=== PATIENT | male | born 1990 | race African-American/Black ===

== ENCOUNTER 2017-07-11 19:56 | Emergency (ER) | payer OTHER ==
[~2017-07-11] VITALS: Ht 162.6 cm; Wt 59.0 kg
[2017-07-11 20:15] VITALS: BP 113/69
[2017-07-11] MEDS ORDERED: Cephalexin 250 MG/5 ML SUSP 100ml ORAL ONE (20:30)
[2017-07-11 20:41] LABS: APPEARANCE,URINE CLOUDY; BILIRUBIN, URINE NEGATIVE (NEGATIVE); COLOR,URINE PALE YELLOW; GLUCOSE, URINE (UA) NEGATIVE (NEGATIVE); KETONES,URINE NEGATIVE (NEGATIVE); LEUKOCYTE ESTERASE ,URINE 3+ (NEGATIVE); NITRITE,URINE NEGATIVE (NEGATIVE); PH,URINE 9 (4.5-8.0); PROTEIN,URINE 3+ (NEGATIVE); UROBILINOGEN,URINE 1 MG/DL (0.0-1.0)
[2017-07-11] MEDS ORDERED: Cephalexin 500mg cap ONE (20:42)
[2017-07-11] MEDS ORDERED: KEFLEX500 MG ORAL (21:05)
[2017-07-11] MEDS ORDERED: PHENAZOPYRIDIN200 MG ORAL (21:05)
[2017-07-11 23:05] VITALS: BP 113/69
--- NOTE | 2017-07-15 13:51 | Emergency Room Report ---
History of Present Illness General Chief Complaint: Male Urogenital Problems Source: Patient Present Illness HPI Patient is a 27-year-old male who presented after increased dysuria. Patient gradual onset of symptoms. The patient said he was released from snf recently. He reported having some hematuria with small amount of dark material in his urine. The patient stated that he had increased frequency of urination. He denies any penile discharge. Allergies: Coded Allergies: No Known Allergies (Unverified , 07/11/17) Patient History Reviewed Nursing Documentation: PMH: Agreed, PSxH: Agreed Nursing Documentation-PMH Past Medical History: No History, Except For Hx Asthma: Yes Review of Systems All Other Systems: negative except mentioned in HPI Physical Exam Vital Signs Date Time Temp Pulse Resp B/P (MAP) Pulse Ox O2 Delivery O2 Flow Rate FiO2 07/11/17 20:05 99.0 98 16 113/69 98 Room Air General Appearance: well appearing, no apparent distress, alert, GCS 15 Head: normocephalic, atraumatic ENT: hearing grossly normal, normal voice Neck: full range of motion, supple Respiratory: no respiratory distress, speaking full sentences Cardiovascular #1: normal inspection Gastrointestinal: normal inspection, normal bowel sounds, non tender Musculoskeletal: normal inspection, back normal, no calf tenderness Neurologic: normal inspection, alert, oriented x3, responsive, normal gait Psychiatric: mood/affect normal Skin: no rash Medical Decision Making Diagnostic Impression: Primary Impression: Urinary tract infection Additional Impression: Renal colic ER Course Patient presented for dysuria. Differential diagnosis included was not limited to appendicitis, urinary tract infection, kidney stone, urethritis, herpes among others. Urinalysis was obtained and showed evidence of urinary infection. The patient was noted to have urine sample which contained a small amount of blood and small object which appear to be a recently passed kidney stone. Patient given prescription for oral antibiotics. The patient was advised followup with urology as an outpatient. The patient is advised to follow up with primary care doctor in 1-2 days. Patient is advised to return if any worsening condition or if any changes in status that are concerning. This report is dictated with [employer] director of safety software which may occasionally lead to discrepancies related to use of this software. Last Vital Signs Date Time Temp Pulse Resp B/P (MAP) Pulse Ox O2 Delivery O2 Flow Rate FiO2 07/11/17 23:05 99 16 113/69 98 07/11/17 20:15 99.0 Room Air Disposition: HOME, SELF-CARE Condition: Stable Scripts Phenazopyridine Hcl* (PYRIDIUM*) 200 Mg Tablet 200 MG ORAL THREE TIMES A DAY, #14 TAB 0 Refills Prov: Darrion Lawrence 07/11/17 Cephalexin* (KEFLEX*) 500 Mg Capsule 500 MG ORAL Q6H, #28 CAP 0 Refills Prov: Darrion Lawrence 07/11/17 Referrals: [facility] (PCP) Patient Instructions: Urinary Tract Infection Darrion Lawrence Jul 15, 2017 13:51
== END 2017-07-11 23:18 | disposition home or self-care (01) ==
LOC: EMR 20:25
DX: N39.0 Urinary tract infection, site not specified (principal); N23 Unspecified renal colic; J45.909 Unspecified asthma, uncomplicated
CPT/HCPCS: 81003; 87086; 99284

== ENCOUNTER 2017-07-15 10:03 | Emergency (ER) | payer OTHER ==
[~2017-07-15] VITALS: Ht 165.1 cm; Wt 63.5 kg
[~2017-07-15 10:03] MED LIST: KEFLEX500 MG ORAL; PHENAZOPYRIDIN200 MG ORAL
[2017-07-15 10:13] VITALS: BP 124/76
[2017-07-15 11:04] LABS: APPEARANCE,URINE SLIGHTLY CLOUDY; BILIRUBIN, URINE NEGATIVE (NEGATIVE); GLUCOSE, URINE (UA) NEGATIVE (NEGATIVE); KETONES,URINE 1+ (NEGATIVE); LEUKOCYTE ESTERASE ,URINE 3+ (NEGATIVE); NITRITE,URINE NEGATIVE (NEGATIVE); PH,URINE 5 (4.5-8.0); PROTEIN,URINE 3+ (NEGATIVE); UROBILINOGEN,URINE 1 MG/DL (0.0-1.0)
[2017-07-15 11:07] LABS: COLOR,URINE YELLOW
[2017-07-15 11:19] LABS: HEMATOCRIT 27.7 % (42.0-52.0); HEMOGLOBIN 7.9 G/DL (14.2-18.0); MEAN CORPUSCULAR VOLUME 60 FL (80-99); PLATELET COUNT 914 K/UL (150-450); RED BLOOD COUNT 4.63 M/UL (4.70-6.10); RED CELL DISTRIBUTION WIDTH 17.1 % (11.6-14.8)
[2017-07-15 11:30] LABS: ANION GAP 10 mmol/L (5-15); BLOOD UREA NITROGEN 11 mg/dL (7-18); CALCIUM 8.6 MG/DL (8.5-10.1); CARBON DIOXIDE 25 MMOL/L (21-32); CHLORIDE 102 MMOL/L (98-107); CREATININE 0.9 MG/DL (0.55-1.30); POTASSIUM 3.9 MMOL/L (3.5-5.1); SODIUM 137 MMOL/L (136-145)
--- NOTE | 2017-07-15 11:32 | Diagnostic Imaging Report ---
Indication: Abdominal pain Technique: Supine view of the abdomen Comparison: none Findings: The bowel gas pattern is unremarkable. There are spinal fusion rods. There is thoracic scoliotic deformity. No new masses or calcifications Impression: No acute process
[2017-07-15 11:35] LABS: ALANINE AMINOTRANSFERASE 6 U/L (12-78); ALBUMIN 2.4 G/DL (3.4-5.0); ALBUMIN/GLOBULIN RATIO 0.5 (1.0-2.7); ALKALINE PHOSPHATASE 56 U/L (46-116); ASPARTATE AMINO TRANSFERASE 9 U/L (15-37); BILIRUBIN,TOTAL 0.4 MG/DL (0.2-1.0)
[2017-07-15 11:45] LABS: INR 1.1 (0.9-1.1)
[2017-07-15 12:00] VITALS: BP 130/74
[2017-07-15] MEDS ORDERED: LET 3ml Soln TOPIC ONE (12:45)
[2017-07-15] MEDS ORDERED: cefTRIAXone 1 GM in NS 55 ML IVPB ONE (12:45)
--- NOTE | 2017-07-15 13:41 | Emergency Room Report ---
History of Present Illness General Chief Complaint: Male Urogenital Problems Source: Patient Present Illness HPI Patient seen here 4 days ago with hematuria and pyuria. He was started on Keflex at that time. The urine is still remained turbid and also he is passing some clots material. The ERMD thought he might have passed a stone. No labs were done except for UA. States pain in flank and with urination of 8/10. No meds taken. The patient states that he's had anemia in the past. He's never received transfusion was just told that he needed to take iron. The patient is recently discharge from senior living. Denies homosexual encounters or rectal penetration. Denies HIV or other sexual transmitted diseases. He states he has hemorrhoids. The patient states that he was going to have a colonoscopy done on and also that an MRI has been scheduled in the near future. He has some chronic rectal tenderness. Followed at [facility]. The patient does get out of breath with exerting himself. He's has some dizziness when he stands on occasion. Post Cardenas Mainor surgery for scoliosis. Allergies: Coded Allergies: No Known Allergies (Unverified , 07/11/17) Patient History Past Medical History: see triage record Past Surgical History: other - Cardenas Rods Social History: Reports: smoking, Denies: alcohol use, drug use Social History Narrative recenlty out of senior living Reviewed Nursing Documentation: PMH: Agreed, PSxH: Agreed Nursing Documentation-PMH Hx Asthma: Yes Review of Systems All Other Systems: negative except mentioned in HPI Physical Exam Vital Signs Date Time Temp Pulse Resp B/P (MAP) Pulse Ox O2 Delivery O2 Flow Rate FiO2 07/15/17 10:06 98.1 113 20 99 Room Air 07/15/17 10:13 124/76 Sp02 EP Interpretation: reviewed, normal General Appearance: well appearing, no apparent distress, GCS 15 Head: normocephalic Eyes: bilateral eye PERRL, bilateral eye conjunctivae pale ENT: moist mucus membranes Neck: supple Respiratory: lungs clear, normal breath sounds Cardiovascular #1: regular rate, rhythm Cardiovascular #2: 2+ radial (R) Gastrointestinal: normal inspection, normal bowel sounds, non tender, no mass, non-distended Genitourinary: no CVA tenderness, penis normal, scrotum normal Musculoskeletal: back normal, gait/station normal, normal range of motion Neurologic: alert, oriented x3, grossly normal Psychiatric: mood/affect normal Skin: warm/dry, pallor Medical Decision Making Diagnostic Impression: Primary Impression: Hematuria Qualified Codes: R31.9 - Hematuria, unspecified Additional Impressions: Profound anemia Qualified Codes: D50.0 - Iron deficiency anemia secondary to blood loss ( chronic) UTI (urinary tract infection) Qualified Codes: N39.0 - Urinary tract infection, site not specified; R31.9 - Hematuria, unspecified ER Course Patient presents with hematuria and pyuria that's not improved after several days of Keflex. Differential includes pyelonephritis, resistant organism, renal mass, stone amongst others. He denies any significant amount of pain at this time. This makes renal stone less likely. He's quite pale and weak and we need to assess the extent of the anemia. The patient be evaluated with abdominal films, labs after the patient will be treated with oral medication because he does not like IVs. Labs are significant for profound anemia. X-ray shows Cardenas rods and scoliosis however no masses are seen or calcifications. Based on the profound anemia and hematuria the patient needs to be admitted for blood transfusion and also IV antibiotics are suggested. Discussed with Dr. Cervantes who accepts the patient in transfer. States will have urology consult. Initially patient not want transfer because of court appearance tomorrow. Explained emergent need for transfer. Laboratory Tests Test 07/15/17 10:34 07/15/17 11:05 Urine Color Yellow Urine Appearance Slightly cloudy Urine pH 5 (4.5-8.0) Urine Specific [place] 1.020 (1.005-1.035) Urine Protein 3+ (NEGATIVE) H Urine Glucose (UA) Negative (NEGATIVE) Urine Ketones 1+ (NEGATIVE) H Urine Occult Blood 5+ (NEGATIVE) H Urine Nitrite Negative (NEGATIVE) Urine Bilirubin Negative (NEGATIVE) Urine Urobilinogen 1 MG/DL (0.0-1.0) H Urine Leukocyte Esterase 3+ (NEGATIVE) H Urine RBC Tntc /HPF (0 - 0) H Urine WBC Tntc /HPF (0 - 0) H Urine Squamous Epithelial Cells Few /LPF (NONE/OCC) Urine Bacteria Many /HPF (NONE) H White Blood Count 13.0 K/UL (4.8-10.8) H Red Blood Count 4.63 M/UL (4.70-6.10) L Hemoglobin 7.9 G/DL (14.2-18.0) L Hematocrit 27.7 % (42.0-52.0) L Mean Corpuscular Volume 60 FL (80-99) L Mean Corpuscular Hemoglobin 17.0 PG (27.0-31.0) L Mean Corpuscular Hemoglobin Concent 28.4 G/DL (32.0-36.0) L Red Cell Distribution Width 17.1 % (11.6-14.8) H Platelet Count 914 K/UL (150-450) H Mean Platelet Volume 5.1 FL (6.5-10.1) L Neutrophils (%) (Auto) % (45.0-75.0) Lymphocytes (%) (Auto) % (20.0-45.0) Monocytes (%) (Auto) % (1.0-10.0) Eosinophils (%) (Auto) % (0.0-3.0) Basophils (%) (Auto) % (0.0-2.0) Differential Total Cells Counted 100 Neutrophils % (Manual) 77 % (45-75) H Lymphocytes % (Manual) 8 % (20-45) L Monocytes % (Manual) 11 % (1-10) H Eosinophils % (Manual) 4 % (0-3) H Basophils % (Manual) 0 % (0-2) Band Neutrophils 0 % (0-8) Platelet Estimate Increased H Platelet Morphology Normal Hypochromasia 3+ Anisocytosis 2+ Microcytosis 1+ Prothrombin Time 11.4 SEC (9.30-11.50) Prothrombin Time INR 1.1 (0.9-1.1) PTT 37 SEC (23-33) H Sodium Level 137 MMOL/L (136-145) Potassium Level 3.9 MMOL/L (3.5-5.1) Chloride Level 102 MMOL/L (98-107) Carbon Dioxide Level 25 MMOL/L (21-32) Anion Gap 10 mmol/L (5-15) Blood Urea Nitrogen 11 mg/dL (7-18) Creatinine 0.9 MG/DL (0.55-1.30) Estimate Glomerular Filtration Rate > 60 mL/min (>60) Glucose Level 81 MG/DL (74-106) Calcium Level 8.6 MG/DL (8.5-10.1) Total Bilirubin 0.4 MG/DL (0.2-1.0) Aspartate Amino Transferase (AST) 9 U/L (15-37) L Alanine Aminotransferase (ALT) 6 U/L (12-78) L Alkaline Phosphatase 56 U/L (46-116) Total Protein 7.2 G/DL (6.4-8.2) Albumin 2.4 G/DL (3.4-5.0) L Globulin 4.8 g/dL Albumin/Globulin Ratio 0.5 (1.0-2.7) L Lipase 69 U/L (73-393) L Other X-Ray Diagnostic Results Other X-Ray Diagnostic Results : X-Ray ordered: abd # of Views/Limited Vs Complete: 1 View EP Interpretation: Yes Interpretation: nonspecific bowel gas, no sbo, other - cardenas rods Impression: No acute disease Electronically Signed by: Electronically signed by Lee Lopez MD Last Vital Signs Date Time Temp Pulse Resp B/P (MAP) Pulse Ox O2 Delivery O2 Flow Rate FiO2 07/15/17 15:30 70 18 120/80 98 Room Air 07/15/17 15:22 98.8 Status: improved Disposition: XFER SHT-TRM HOSP Condition: Serious - but stable for transfer Referrals: [facility] (PCP) Lee Lopez M.D. Jul 15, 2017 13:41
[2017-07-15 14:00] VITALS: BP 128/75
[2017-07-15 15:22] VITALS: BP 112/66
[2017-07-15 15:30] VITALS: BP 120/80
== END 2017-07-15 15:30 | disposition short-term general hospital (02) ==
LOC: EMR 11:03
DX: R31.9 Hematuria, unspecified (principal); D64.9 Anemia, unspecified; N39.0 Urinary tract infection, site not specified; J45.909 Unspecified asthma, uncomplicated; F17.200 Nicotine dependence, unspecified, uncomplicated
CPT/HCPCS: 36415; 74018; 80053; 81003; 83690; 85007; 85025; 85610; 85730; 86850; 86900; 86901; 87086; 87181; 96365; 99285; J0696